=== PATIENT | female | born 1980 | race American Indian/Alaskan Native ===

== ENCOUNTER 2016-08-24 14:09 | Emergency (ER) | payer OTHER ==
[2016-08-24 14:18] VITALS: BP 151/92; PULSE 98; RESP 16; TEMP 98.2; O2SAT 97
--- NOTE | 2016-08-24 14:41 | EDPHY ---
HPI/HX/ROS/PE/MDM Narrative: CHIEF COMPLAINT: Right wrist pain HPI: The patient is a 35 y/o female complaining of right wrist pain after moving a heavy fe at work today. She says she was pulling a loaded fe and it jumped the curb and landed against her van. As she was pulling it to move it off the van she developed pain along the ulnar aspect of her right forearm and wrist. She denies any impact to her arm or wrist. She now has pain when pronating her wrist and with picking up light objects. She denies weakness or paresthesias. REVIEW OF SYSTEMS: Aside from elements discussed in the HPI, a comprehensive 10-point review of systems was reviewed and is negative. PMH: Denies SOCIAL HISTORY: [facility] [employer] PHYSICAL EXAM: General:Patient is alert, in no acute distress. Skin: Normal color. No rash. Warm and dry. Extremities: Normal appearance. Full range of motion. Mild tenderness to ulnar aspect of right wrist. Neuro: Oriented x3. Normal motor function. Normal sensory function. ED Course: Study: Right wrist x-ray Indication: Pain Results: Wrist x-ray was obtained. The results of the study are negative for fracture. Radiologist report pending. I viewed the images myself on the PACS system. 1435: I discussed these results with the patient. I recommended typical wrist sprain management and to follow up with appropriate clinic as directed by her HR department. She's also been referred to hand specialist as needed for symptoms not improve. Return precautions given. She is comfortable with this plan. MDM: This patient presents with signs and symptoms of wrist sprain, confirmed on exam and with negative XR. Wrist splint was placed - follow-up with Hand/Work Comp if symptoms persist. General Time Seen by Provider: 08/24/16 14:23 Initial Vital Signs: Initial Vital Signs Temperature (C) 36.8 C 08/24/16 14:13 Heart Rate 98 08/24/16 14:13 Respiratory Rate 16 08/24/16 14:13 Blood Pressure 151/92 H 08/24/16 14:13 O2 Sat (%) 97 08/24/16 14:13 O2 Delivery Mode Room Air Allergies/Adverse Reactions: chlorine Allergy (Uncoded 08/24/16 14:13) Home Medications: Medication Instructions Recorded Ibuprofen [Motrin (*)] 600 mg PO TID 7 Days 08/24/16 Concha-Be 08/24/16 Departure - Departure Disposition: Home, Routine, Self-Care Condition: Good Instructions: Wrist Sprain (ED) Additional Instructions: 1. Apply ice to sore areas. Take 600mg ibuprofen every 6-8 hours for the next 3- 4 days as needed for pain and inflammation. 2. Wear splint as directed for comfort while symptoms are present. 3. You've been referred to Dr. Villarreal, hand specialist, for symptoms not improved over the next week. 4. Follow up with the appropriate clinic as directed by your employer's HR department for workman's comp. 5. Return to the ED for dramatic increase in pain or swelling, numbness or weakness in your fingers, or other worsening of condition. Referrals: NONE *PRIMARY CARE P,. [Primary Care Provider] - As per Instructions Adriano Villarreal MD [Medical Doctor] - As per Instructions Prescriptions: Ibuprofen [Motrin (*)] 600 mg PO TID 7 Days Report Scribed for: Boo Schwartz Report Scribed by: Avril Malik Date of Report: 08/24/16 Time of Report: 14:24 Physician Review and Approval Statement: Portions of this note were transcribed by an ED scribe. I personally performed the history, physical exam, and medical decision making; and confirm the accuracy of the information in the transcribed note.
--- NOTE | 2016-08-24 15:11 | DX ---
Right Wrist Series, Four Views History: Lifting injury earlier today. Findings: Osseous structures are intact without fracture. Joint spaces are normal. Soft tissues are u nremarkable. Impression: Normal right wrist series.
== END 2016-08-24 14:55 | disposition home or self-care (01) ==
DX: S63.501A Unspecified sprain of right wrist, initial encounter (principal); X58.XXXA Exposure to other specified factors, initial encounter; Y92.69 Other specified industrial and construction area as the place of occurrence of the external cause; Y99.0 Civilian activity done for income or pay; Y93.89 Activity, other specified
CPT/HCPCS: L3908